=== PATIENT | female | born 1965 | race Two or more races ===

== ENCOUNTER 2018-11-15 22:12 | Emergency (ER) | payer BC ==
[~2018-11-15] VITALS: Ht 165.1 cm; Wt 85.3 kg
[2018-11-15 22:41] VITALS: BP 144/62
== END 2018-11-15 23:00 ==
LOC: ER 22:19
DX: F10.129 Alcohol abuse with intoxication, unspecified (principal); Y90.9 Presence of alcohol in blood, level not specified